=== PATIENT | male | born 1945 | race Caucasian/White ===

== ENCOUNTER 2018-02-21 14:07 | Emergency (ER) | payer MEDICARE, OTHER ==
[~2018-02-21] VITALS: Ht 172.7 cm; Wt 86.2 kg
[2018-02-21] MEDS ORDERED: LIDOCAINE HCL 2% TOP JELLY 5ML TOP ONE (18:00)
[2018-02-21] MEDS ORDERED: LIDOCAINE 2% JELLY 11ml (GLYDO) UR ONE (18:30)
[2018-02-21 19:33] VITALS: BP 154/98
== END 2018-02-21 18:57 | disposition home or self-care (01) ==
LOC: ER 14:09
DX: R33.9 Retention of urine, unspecified (principal); E78.5 Hyperlipidemia, unspecified; I10 Essential (primary) hypertension
CPT/HCPCS: 51702; 81002

== ENCOUNTER 2020-10-30 06:59 | Inpatient (IN) | payer MEDICARE, OTHER ==
[~2020-10-30] VITALS: Ht 167.6 cm; Wt 90.0 kg
[2020-10-30 07:40] LABS: Basophils # (auto) 0 10 ^3/uL (0-0.2); Basophils % (auto) 0.4 % (0.0-2.0); Eosinophils # (auto) 0.2 10 ^3/uL (0-0.8); Eosinophils % (auto) 1.5 % (0.0-7.0); Hematocrit 46.1 % (41.0-53.0); Hemoglobin 15.6 g/dL (13.5-17.5); Lymphocytes # (auto) 0.9 10 ^3/uL (0.4-5.4); Lymphocytes % (auto) 7.9 % (10.0-50.0); Mean Corpuscular Hemoglobin 32.4 pg (28.0-32.0); Mean Corpuscular Hgb Conc. 33.9 g/dL (32.0-36.0); Mean Corpuscular Volume 95.7 fL (80.0-100.0); Monocytes # (auto) 0.9 10 ^3/uL (0-1.3); Monocytes % (auto) 8.2 % (0.0-12.0); Neutrophils # (auto) 9.4 10 ^3/uL (1.6-8.6); Platelet Count (auto) 164 10^3/uL (140-450); Red Blood Cells 4.82 10^6/uL (4.5-5.90); Red Cell Distribution Width 12.7 % (11.8-14.3); White Blood Cell 11.5 10^3/uL (4.4-10.8)
[2020-10-30] MEDS ORDERED: MORPHINE SULF INJ 2 MG/ML SYRINGE 1ML ONE (07:45)
[2020-10-30] MEDS ORDERED: ONDANSETRON HCL 4 MG/2 ML VIAL ONE (07:45)
[2020-10-30 07:46] LABS: Albumin 3.9 g/dL (3.4-5.0); Anion Gap 7 (5-15); Blood Urea Nitrogen 24 mg/dL (7-18); Calcium 9.2 mg/dL (8.5-10.1); Carbon Dioxide 27 mmol/L (21-32); Chloride 105 mmol/L (98-107); Glucose 119 mg/dL (74-106); Potassium 4.1 mmol/L (3.5-5.1); Sodium 139 mmol/L (136-145)
[2020-10-30 07:51] LABS: Alanine Aminotransferase 22 U/L (16-61); Alkaline Phosphatase 65 U/L (45-117); Aspartate Aminotransferase 16 U/L (15-37); BUN/Creatinine Ratio 19.4; Bilirubin, Total 0.8 mg/dL (0.2-1.0); GFR African American 73 mL/min; GFR Non-African American 61 mL/min; Total Protein 7.4 g/dL (6.4-8.2)
[2020-10-30] MEDS ORDERED: ONDANSETRON HCL 4 MG/2 ML VIAL IV ONE (08:00)
[2020-10-30] MEDS ORDERED: MORPHINE SULF INJ 2 MG/ML SYRINGE 1ML IV ONE (08:00)
[2020-10-30] MEDS ORDERED: OMEP20TA PO (09:03)
[2020-10-30] MEDS ORDERED: MECL25TA18 PO (09:03)
[2020-10-30] MEDS ORDERED: CHOL20007 PO (09:03)
[2020-10-30] MEDS ORDERED: TAMS0.4C36 PO (09:03)
[2020-10-30] MEDS ORDERED: HYDR-4072 PO (09:03)
[2020-10-30] MEDS ORDERED: FOLI1TAB6 PO (09:03)
[2020-10-30] MEDS ORDERED: NIAC500T71 PO (09:03)
[2020-10-30] MEDS ORDERED: CYCL10TA6 PO (09:03)
[2020-10-30] MEDS ORDERED: ALBU108A14 IN (09:03)
[2020-10-30] MEDS ORDERED: FLUT250M2 INH (09:03)
[2020-10-30] MEDS ORDERED: DILT60TA PO (09:03)
[2020-10-30] MEDS ORDERED: PRA1C PO (09:03)
[2020-10-30] MEDS ORDERED: GABA300C10 PO (09:03)
[2020-10-30] MEDS ORDERED: BUSP5TAB51 PO (09:03)
[2020-10-30] MEDS ORDERED: LATA0.0019 OP (09:03)
[2020-10-30] MEDS ORDERED: ASPI-543 PO (09:03)
[2020-10-30] MEDS ORDERED: CYAN250L PO (09:03)
[2020-10-30] MEDS ORDERED: cloNIDine HCL 0.1 MG TAB ONE (09:06)
[2020-10-30] MEDS ORDERED: cloNIDine HCL 0.1 MG TAB PO ONE (09:15)
[2020-10-30] MEDS ORDERED: HYDROmorphone HCL 2 MG/ML VL IV ONE (10:15)
[2020-10-30] MEDS ORDERED: PROMETHAZINE HCL 25 MG/ML 1ML IV ONE (10:15)
[2020-10-30] MEDS ORDERED: LABETALOL HCL 5 MG/ML 4ML SYRINGE IV ONE (12:30)
[2020-10-30] MEDS ORDERED: TAMSULOSIN HYDROCHLORIDE 0.4 MG CAP PO ONE (13:30)
[2020-10-30] MEDS ORDERED: ALUM & MAG HYDROX-SIMETH LIQ(MAALOX) 30 ML PO PRN (13:30)
[2020-10-30] MEDS ORDERED: NITROGLYCERIN 0.4 MG SL TAB SL PRN (13:30)
[2020-10-30] MEDS ORDERED: hydrALAZINE HCL 20 MG/ML VL IV ONE (13:30)
[2020-10-30] MEDS ORDERED: ONDANSETRON HCL 4 MG/2 ML VIAL IV PRN (13:30)
[2020-10-30] MEDS ORDERED: HYDROcodone-ACET 5/325MG TAB PO PRN (13:30)
[2020-10-30] MEDS ORDERED: ACETAMINOPHEN 325 MG TAB PO PRN (13:30)
[2020-10-30] MEDS ORDERED: MORPHINE SULF INJ 2 MG/ML SYRINGE 1ML IV PRN (13:30)
[2020-10-30] MEDS: MANNITOL FTV 25% 12.5 GM/50 ML 50 ML IV ONE ×2 (13:45→14:19)
[2020-10-30] MEDS: SODIUM CHLORIDE 0.9% 1,000 ML IV SCH (13:48)
[2020-10-30 13:51] LABS: Urine WBC None Seen /hpf (0 - 3)
[2020-10-30] MEDS: cefTRIAXone 1GM/50ML D5W 50 ML IV SCH (14:00)
[2020-10-30 14:06] LABS: Urine Bacteria NONE SEEN /hpf (None Seen); Urine Blood 1+ /uL (Negative); Urine Specific Gravity 1.021 (1.001-1.035)
[2020-10-30] MEDS: HYDROmorphone HCL 2 MG/ML VL IV PRN ×2 (15:45→21:20)
[2020-10-30 17:00] VITALS: BP 159/84
[2020-10-30] MEDS: TEMAZEPAM 15 MG CAP PO PRN (21:20)
[2020-10-30 22:00] VITALS: BP 101/71
[2020-10-31] MEDS: HYDROmorphone HCL 2 MG/ML VL IV PRN ×5 (03:13→22:22)
[2020-10-31 05:14] VITALS: BP 146/84
[2020-10-31] MEDS: SODIUM CHLORIDE 0.9% 1,000 ML IV SCH ×4 (05:39→22:21)
[2020-10-31 09:00] VITALS: BP 147/86
[2020-10-31] MEDS: TAMSULOSIN HYDROCHLORIDE 0.4 MG CAP PO SCH (09:56)
[2020-10-31] MEDS: cefTRIAXone 1GM/50ML D5W 50 ML IV SCH (09:56)
[2020-10-31] MEDS: traMADol HCL 50 MG TAB PO PRN ×2 (12:18→21:11)
[2020-10-31 13:00] VITALS: BP 147/82
[2020-10-31 17:00] VITALS: BP 150/81
[2020-10-31] MEDS: [UNRECOGNIZED DRUG - OTHER] OP SCH (18:09)
[2020-10-31 20:00] VITALS: BP 142/94
[2020-10-31] MEDS: LATANOPROST 0.005 % OPTH(EYE) SOL 2.5ML EACHEYE SCH (21:11)
[2020-11-01 04:59] VITALS: BP 156/92
[2020-11-01] MEDS: SODIUM CHLORIDE 0.9% 1,000 ML IV SCH ×3 (05:43→21:02)
[2020-11-01 09:00] VITALS: BP 161/84
[2020-11-01] MEDS: cefTRIAXone 1GM/50ML D5W 50 ML IV SCH (09:42)
[2020-11-01] MEDS: dilTIAZem 120MG ER CAP PO SCH (09:43)
[2020-11-01] MEDS: TAMSULOSIN HYDROCHLORIDE 0.4 MG CAP PO SCH (09:43)
[2020-11-01] MEDS: PRAZOSIN HCL 1 MG CAP PO SCH (09:44)
[2020-11-01] MEDS ORDERED: REFRESH OPTIVE OP SCH (10:00)
[2020-11-01] MEDS: [UNRECOGNIZED DRUG - OTHER] OP SCH (10:00)
[2020-11-01 10:16] LABS: Basophils # (auto) 0 10 ^3/uL (0-0.2); Basophils % (auto) 0.3 % (0.0-2.0); Eosinophils # (auto) 0.1 10 ^3/uL (0-0.8); Eosinophils % (auto) 0.9 % (0.0-7.0); Hematocrit 42.4 % (41.0-53.0); Hemoglobin 14.4 g/dL (13.5-17.5); Lymphocytes # (auto) 0.7 10 ^3/uL (0.4-5.4); Lymphocytes % (auto) 7.3 % (10.0-50.0); Mean Corpuscular Hemoglobin 32.6 pg (28.0-32.0); Mean Corpuscular Volume 95.8 fL (80.0-100.0); Monocytes # (auto) 1.2 10 ^3/uL (0-1.3); Monocytes % (auto) 11.5 % (0.0-12.0); Neutrophils # (auto) 8.1 10 ^3/uL (1.6-8.6); Platelet Count (auto) 157 10^3/uL (140-450); Red Blood Cells 4.43 10^6/uL (4.5-5.90); White Blood Cell 10.1 10^3/uL (4.4-10.8)
[2020-11-01 10:19] LABS: Calcium 9.3 mg/dL (8.5-10.1); Potassium 4.1 mmol/L (3.5-5.1)
[2020-11-01 10:21] LABS: BUN/Creatinine Ratio 15.8
[2020-11-01 13:00] VITALS: BP 131/81
[2020-11-01] MEDS ORDERED: LORazepam 2MG/ML-1ML VIAL IV PRN (16:30)
[2020-11-01 17:04] VITALS: BP 135/71
[2020-11-01] MEDS: LATANOPROST 0.005 % OPTH(EYE) SOL 2.5ML EACHEYE SCH (21:02)
[2020-11-01] MEDS: TEMAZEPAM 15 MG CAP PO PRN (21:02)
[2020-11-01 22:00] VITALS: BP 138/67
[2020-11-02] MEDS: SODIUM CHLORIDE 0.9% 1,000 ML IV SCH ×3 (02:21→15:35)
[2020-11-02 05:00] VITALS: BP 153/83
[2020-11-02 09:00] VITALS: BP 153/95
[2020-11-02] MEDS: dilTIAZem 120MG ER CAP PO SCH (09:47)
[2020-11-02] MEDS: TAMSULOSIN HYDROCHLORIDE 0.4 MG CAP PO SCH (09:47)
[2020-11-02] MEDS: [UNRECOGNIZED DRUG - OTHER] OP SCH (09:48)
[2020-11-02] MEDS: cefTRIAXone 1GM/50ML D5W 50 ML IV SCH (09:48)
[2020-11-02] MEDS: PRAZOSIN HCL 1 MG CAP PO SCH (09:48)
[2020-11-02] MEDS ORDERED: IOHEXOL 350 MG/ML 100ML IJ ONE (12:52)
[2020-11-02 13:00] VITALS: BP_SYST 127; BP_SYST 141; BP_DIAS 79; BP_DIAS 88
[2020-11-02 15:09] VITALS: BP 141/88
[2020-11-02 17:00] VITALS: BP 148/98
== END 2020-11-02 19:45 | disposition home or self-care (01) | DRG 689 ==
LOC: ER 06:59 → EAST 13:17
PROVIDERS: ADMIT Internal Medicine; ATTEND Internal Medicine
DX: N13.6 Pyonephrosis (principal); J96.00 Acute respiratory failure, unspecified whether with hypoxia or hypercapnia; N30.00 Acute cystitis without hematuria; J44.9 Chronic obstructive pulmonary disease, unspecified; K80.20 Calculus of gallbladder without cholecystitis without obstruction; N40.0 Benign prostatic hyperplasia without lower urinary tract symptoms; F43.10 Post-traumatic stress disorder, unspecified; Z20.822 Contact with and (suspected) exposure to COVID-19; K37 Unspecified appendicitis; F41.1 Generalized anxiety disorder; F41.9 Anxiety disorder, unspecified; E66.9 Obesity, unspecified; E78.5 Hyperlipidemia, unspecified; I11.9 Hypertensive heart disease without heart failure; Z68.32 Body mass index [BMI] 32.0-32.9, adult; Z79.51 Long term (current) use of inhaled steroids; Z79.899 Other long term (current) drug therapy; Z80.1 Family history of malignant neoplasm of trachea, bronchus and lung; Z80.42 Family history of malignant neoplasm of prostate; Z80.8 Family history of malignant neoplasm of other organs or systems; Z81.8 Family history of other mental and behavioral disorders; Z82.0 Family history of epilepsy and other diseases of the nervous system; Z82.5 Family history of asthma and other chronic lower respiratory diseases; Z85.038 Personal history of other malignant neoplasm of large intestine; Z85.118 Personal history of other malignant neoplasm of bronchus and lung; Z85.3 Personal history of malignant neoplasm of breast; Z87.891 Personal history of nicotine dependence
CPT/HCPCS: 36415; 36600; 71045; 71275; 74176; 80048; 80053; 81001; 82805; 83880; 84154; 84484; 85025; 87426; 93005; 96365; 96375; G0378; J0696; J2405

== ENCOUNTER → 2021-02-03 | Outpatient (CLI) | payer MEDICARE, OTHER ==
[~2021-02-03] MED LIST: ALBU108A14 IN; ASPI-543 PO; BUSP5TAB51 PO; CHOL20007 PO; CYAN250L PO; CYCL10TA6 PO; DILT60TA PO; FLUT250M2 INH; FOLI1TAB6 PO; GABA300C10 PO; HYDR-4072 PO; LATA0.0019 OP; MECL25TA18 PO; NIAC500T71 PO; OMEP20TA PO; PRA1C PO; TAMS0.4C36 PO
== END | disposition home or self-care (01) ==
LOC: LAB 07:54
PROVIDERS: ATTEND Internal Medicine
DX: E03.9 Hypothyroidism, unspecified (principal); R35.1 Nocturia; Z79.899 Other long term (current) drug therapy
CPT/HCPCS: 36415; 83036; 84439; 84443

== ENCOUNTER → 2021-04-29 | Outpatient (CLI) | payer MEDICARE, OTHER ==
[2021-04-29 12:50] LABS: Hepatitis B Surface Antibody Positive
[2021-04-29 13:19] LABS: Cholesterol 155 mg/dL (< 200); HDL Cholesterol 42 mg/dL (40-59); LDL Cholesterol 91 mg/dL (< 100); Triglycerides 181 mg/dL (< 150)
[2021-04-29 13:51] LABS: Hepatitis A Ab IgM Negative
[2021-04-29 13:52] LABS: Hepatitis B Surface Antigen Negative (Negative); Hepatitis C Antibody Negative (Negative)
[2021-04-29 13:55] LABS: Hepatitis B Core IgM Negative
[2021-04-29 13:59] LABS: Hepatitis B Core Total AB Positive
[2021-04-30 08:06] LABS: Immunoglobulin G, Serum 990 mg/dL (603-1613)
== END | disposition home or self-care (01) ==
LOC: LAB 11:29
PROVIDERS: ATTEND Internal Medicine
DX: G62.9 Polyneuropathy, unspecified (principal); N40.0 Benign prostatic hyperplasia without lower urinary tract symptoms; R89.9 Unspecified abnormal finding in specimens from other organs, systems and tissues; Z79.899 Other long term (current) drug therapy
CPT/HCPCS: 36415; 80061; 82607; 82784; 84207; 86334; 86704; 86705; 86706; 86709; 86803; 87340

== ENCOUNTER → 2021-12-09 | Outpatient (CLI) | payer MEDICARE, OTHER ==
[~2021-12-09] MED LIST changes: +CYCL-839 PO; -CYCL10TA6 PO
[2021-12-09 11:52] LABS: Urine Bacteria NONE SEEN /hpf (None Seen); Urine Blood Negative /uL (Negative); Urine Hyaline Cast FEW /lpf (0 - 2); Urine Mucus FEW (None Seen); Urine Specific Gravity 1.035 (1.001-1.035); Urine WBC 1 /hpf (0 - 3)
[2021-12-09 11:54] LABS: Basophils # (auto) 0.3 10 ^3/uL (0-0.2); Basophils % (auto) 4.6 % (0.0-2.0); Eosinophils # (auto) 0.2 10 ^3/uL (0-0.8); Eosinophils % (auto) 2.9 % (0.0-7.0); Hematocrit 45.1 % (41.0-53.0); Lymphocytes # (auto) 0.9 10 ^3/uL (0.4-5.4); Lymphocytes % (auto) 15.9 % (10.0-50.0); Mean Corpuscular Hgb Conc. 33.2 g/dL (32.0-36.0); Mean Corpuscular Volume 96.4 fL (80.0-100.0); Monocytes # (auto) 0.5 10 ^3/uL (0-1.3); Monocytes % (auto) 8.2 % (0.0-12.0); Neutrophils # (auto) 4.1 10 ^3/uL (1.6-8.6); Neutrophils % (auto) 68.4 % (37.0-80.0); Nucleated Red Blood Cells % 0.1 %; Red Blood Cells 4.68 10^6/uL (4.5-5.90); Red Cell Distribution Width 13.1 % (11.8-14.3)
[2021-12-09 12:46] LABS: Albumin 3.7 g/dL (3.4-5.0); Potassium 4.5 mmol/L (3.5-5.1)
[2021-12-09 12:49] LABS: Bilirubin, Total 0.3 mg/dL (0.2-1.0); Total Protein 7.1 g/dL (6.4-8.2)
== END | disposition home or self-care (01) ==
LOC: LAB 11:29
PROVIDERS: ATTEND Internal Medicine
DX: K21.9 Gastro-esophageal reflux disease without esophagitis (principal); E03.9 Hypothyroidism, unspecified; I10 Essential (primary) hypertension
CPT/HCPCS: 36415; 80053; 81001; 84439; 84443; 85025

== ENCOUNTER → 2022-04-12 | Outpatient (CLI) | payer MEDICARE, OTHER ==
[2022-04-12 12:54] LABS: Urine Bacteria NONE SEEN /hpf (None Seen); Urine Blood Negative /uL (Negative); Urine Mucus FEW (None Seen); Urine Specific Gravity 1.027 (1.001-1.035); Urine WBC 2 /hpf (0 - 3)
[2022-04-12 12:59] LABS: Basophils # (auto) 0 10 ^3/uL (0-0.2); Basophils % (auto) 0.9 % (0.0-2.0); Eosinophils # (auto) 0.1 10 ^3/uL (0-0.8); Eosinophils % (auto) 2.7 % (0.0-7.0); Hematocrit 42.7 % (41.0-53.0); Hemoglobin 14.2 g/dL (13.5-17.5); Lymphocytes # (auto) 1.1 10 ^3/uL (0.4-5.4); Lymphocytes % (auto) 21.2 % (10.0-50.0); Mean Corpuscular Hemoglobin 31.5 pg (28.0-32.0); Mean Corpuscular Hgb Conc. 33.3 g/dL (32.0-36.0); Mean Corpuscular Volume 94.6 fL (80.0-100.0); Monocytes # (auto) 0.5 10 ^3/uL (0-1.3); Monocytes % (auto) 9.6 % (0.0-12.0); Neutrophils # (auto) 3.3 10 ^3/uL (1.6-8.6); Neutrophils % (auto) 65.6 % (37.0-80.0); Nucleated Red Blood Cells % 0.1 %; Red Blood Cells 4.52 10^6/uL (4.5-5.90); Red Cell Distribution Width 13.1 % (11.8-14.3)
[2022-04-12 13:19] LABS: Potassium 4.1 mmol/L (3.5-5.1)
[2022-04-12 13:26] LABS: Albumin 4.1 g/dL (3.4-5.0); Bilirubin, Total 0.6 mg/dL (0.2-1.0); Total Protein 6.9 g/dL (6.4-8.2); Uric Acid 3.7 mg/dL (3.5-7.2)
[2022-04-12 13:29] LABS: Free T4 (Free Thyroxine) 1.18 ng/dL (0.89-1.76); Prostate Specific Antigen 2.43 ng/mL (0.0-4.0)
== END | disposition home or self-care (01) ==
LOC: LAB 12:20
PROVIDERS: ATTEND Internal Medicine
DX: I10 Essential (primary) hypertension (principal); N40.0 Benign prostatic hyperplasia without lower urinary tract symptoms; R73.01 Impaired fasting glucose
CPT/HCPCS: 36415; 80053; 80061; 81001; 83036; 84153; 84439; 84443; 84550; 85025; 85652

== ENCOUNTER → 2023-05-16 | Outpatient (CLI) | payer MEDICARE, OTHER ==
[~2023-05-16] MED LIST changes: +FOLI-119 PO; -FOLI1TAB6 PO; +GABA-1250 PO; -GABA300C10 PO; -LATA0.0019 OP; +LATA0.008 OP; +MECL1TAB32 PO; -MECL25TA18 PO
[2023-05-16 12:37] LABS: Prostate Specific Antigen 2.75 ng/mL (0.0-4.0)
[2023-05-16 12:40] LABS: Free T4 (Free Thyroxine) 0.89 ng/dL (0.89-1.76)
[2023-05-16 12:51] LABS: Basophils # (auto) 0.1 10 ^3/uL (0-0.2); Basophils % (auto) 0.9 % (0.0-2.0); Eosinophils # (auto) 0.2 10 ^3/uL (0-0.8); Eosinophils % (auto) 3.6 % (0.0-7.0); Hematocrit 48.2 % (41.0-53.0); Hemoglobin 15.9 g/dL (13.5-17.5); Lymphocytes # (auto) 1.2 10 ^3/uL (0.4-5.4); Lymphocytes % (auto) 20.2 % (10.0-50.0); Mean Corpuscular Hemoglobin 32.1 pg (28.0-32.0); Mean Corpuscular Volume 97.2 fL (80.0-100.0); Monocytes # (auto) 0.6 10 ^3/uL (0-1.3); Monocytes % (auto) 10.2 % (0.0-12.0); Neutrophils # (auto) 3.9 10 ^3/uL (1.6-8.6); Neutrophils % (auto) 65.1 % (37.0-80.0); Nucleated Red Blood Cells % 0.2 %; Red Blood Cells 4.96 10^6/uL (4.5-5.90); Red Cell Distribution Width 13.3 % (11.8-14.3)
[2023-05-16 13:05] LABS: Bilirubin, Total 0.5 mg/dL (0.2-1.0)
[2023-05-16 13:14] LABS: Alanine Aminotransferase 14 U/L (7-40); Albumin 4.4 g/dL (3.2-4.8); Alkaline Phosphatase 38 U/L (46-116); Anion Gap 6 (5-15); Aspartate Aminotransferase 16 U/L (13-40); BUN/Creatinine Ratio 10.7 (10.0-20.0); Blood Urea Nitrogen 14 mg/dL (9-23); Calcium 9.2 mg/dL (8.5-10.1); Carbon Dioxide 29 mmol/L (20-30); Chloride 104 mmol/L (98-107); Cholesterol 145 mg/dL (< 200); Glucose 111 mg/dL (74-106); HDL Cholesterol 42 mg/dL (40-59); LDL Cholesterol 90 mg/dL (< 100); Potassium 4.3 mmol/L (3.5-5.1); Sodium 139 mmol/L (136-145); Total Protein 6.9 g/dL (5.7-8.2); Triglycerides 116 mg/dL (< 150)
[2023-05-16 13:27] LABS: Erythrocyte Sedimentation Rate 1 mm/hr (0-20)
== END | disposition home or self-care (01) ==
LOC: LAB 11:54
PROVIDERS: ATTEND Internal Medicine
DX: E78.5 Hyperlipidemia, unspecified (principal); N40.0 Benign prostatic hyperplasia without lower urinary tract symptoms
CPT/HCPCS: 36415; 80053; 80061; 84153; 84439; 84443; 85025; 85652

== ENCOUNTER → 2023-12-25 | Outpatient (CLI) | payer MEDICARE, OTHER ==
[~2023-12-25] MED LIST changes: +MECL-90 PO; -MECL1TAB32 PO
== END | disposition home or self-care (01) ==
LOC: XYW 12:28
PROVIDERS: ATTEND Student in an Organized Health Care Education/Training Program
DX: I35.8 Other nonrheumatic aortic valve disorders (principal); I51.89 Other ill-defined heart diseases; R06.02 Shortness of breath
CPT/HCPCS: 93306

== ENCOUNTER 2024-03-01 21:43 | Inpatient (IN) | payer MEDICARE, OTHER ==
[~2024-03-01] VITALS: Ht 175.3 cm; Wt 111.5 kg
[2024-03-01 21:43] VITALS: PULSE 111; RESP 27; O2SAT 91
[~2024-03-01 21:43] MED LIST changes: +LATA0.008 EACHEYE; -LATA0.008 OP; -PRA1C PO; +PRAZ1CAP2 PO; -TAMS0.4C36 PO; +TAMS0.4C39 PO
[2024-03-01 22:36] LABS: Basophils % (auto) 0.6 % (0.0-2.0); Eosinophils # (auto) 0.2 10 ^3/uL (0-0.8); Lymphocytes # (auto) 0.7 10 ^3/uL (0.4-5.4); Monocytes # (auto) 0.6 10 ^3/uL (0-1.3); White Blood Cell 8.8 10^3/uL (4.4-10.8)
[2024-03-01 22:38] LABS: Basophils # (auto) 0.1 10 ^3/uL (0-0.2); Eosinophils % (auto) 1.8 % (0.0-7.0); Hematocrit 44.9 % (41.0-53.0); Hemoglobin 14.1 g/dL (13.5-17.5); Lymphocytes % (auto) 7.6 % (10.0-50.0); Mean Corpuscular Hemoglobin 26.5 pg (28.0-32.0); Mean Corpuscular Hgb Conc. 31.4 g/dL (32.0-36.0); Mean Corpuscular Volume 84.2 fL (80.0-100.0); Monocytes % (auto) 6.9 % (0.0-12.0); Neutrophils # (auto) 7.3 10 ^3/uL (1.6-8.6); Neutrophils % (auto) 83.1 % (37.0-80.0); Platelet Count (auto) 235 10^3/uL (140-450); Red Blood Cells 5.33 10^6/uL (4.5-5.90); Red Cell Distribution Width 17.7 % (11.8-14.3)
[2024-03-01 22:47] LABS: Chloride 107 mmol/L (98-107); Potassium 4.3 mmol/L (3.5-5.1); Sodium 143 mmol/L (136-145)
[2024-03-01 22:48] LABS: Anion Gap 7 (5-15); Calcium 9.6 mg/dL (8.7-10.4); Carbon Dioxide 29 mmol/L (20-30)
[2024-03-01 22:53] LABS: BUN/Creatinine Ratio 11.4 (10.0-20.0); Blood Urea Nitrogen 15 mg/dL (9-23); Glucose 176 mg/dL (74-106)
[2024-03-01 22:56] LABS: Base Excess -2.3 mmol/L (-2.0-2.0)
[2024-03-01 22:59] LABS: Lactic Acid w/Reflex 4.3 mmol/L (0.4-2.0)
[2024-03-02] VITALS (9 sets, daily range): BP systolic 125–158; BP diastolic 31–88; PULSE 91–113; RESP 20–23; O2SAT 91–96
[2024-03-02] MEDS: ALBUTEROL SULF 2.5 MG/0.5ML(0.5%) NEB SOLN NEB ONE (01:09)
[2024-03-02] MEDS: methylPREDNISolone SOD SUCC 125 MG/2 ML VL IV ONE (01:11)
[2024-03-02] MEDS ORDERED: ONDANSETRON HCL 4 MG/2 ML VIAL IV PRN (01:15)
[2024-03-02] MEDS ORDERED: ACETAMINOPHEN 325 MG TAB PO PRN (01:15)
[2024-03-02] MEDS ORDERED: DOCUSATE SOD 100 MG CAP PO PRN (01:15)
[2024-03-02] MEDS: AZITHROMYCIN 250 MG TAB PO ONE (01:16)
[2024-03-02] MEDS: SODIUM CHLORIDE 0.9% 1,000 ML IV SCH (01:24)
[2024-03-02 01:40] LABS: Amphetamine Screen, Urine Neg (NEGATIVE); Barbiturate Scree,Urine Neg (NEGATIVE); Benzodiazephine Screen, Urine Pos (NEGATIVE); Cocaine Screen, Urine Neg (NEGATIVE)
[2024-03-02 01:41] LABS: Cannabinoid Screen, Urine Neg (NEGATIVE); Opiate Scree,Urine Pos (NEGATIVE); Phencyclidine Screen, Urine Neg (NEGATIVE)
[2024-03-02] MEDS: LORazepam 2MG/ML-1ML VIAL IV ONE ×2 (02:15→05:11)
[2024-03-02] MEDS: LORazepam 2MG/ML-1ML VIAL ONE (05:06)
[2024-03-02] MEDS: methylPREDNISolone SOD SUCC 40 MG/ML VL IV SCH (05:34)
[2024-03-02] MEDS ORDERED: NITROGLYCERIN 0.4 MG SL TAB SL PRN (06:00)
[2024-03-02 07:28] LABS: Base Excess 1.3 mmol/L (-2.0-2.0)
[2024-03-02] MEDS: ASPirin 81 mg TAB PO SCH (10:00)
[2024-03-02] MEDS: FAMOTIDINE (10MG/ML) 2ML VL IV SCH (10:24)
[2024-03-02] MEDS: HYDROcodone-ACET 5/325MG TAB PO PRN (11:00)
[2024-03-02 11:27] LABS: Mean Corpuscular Volume 83.6 fL (80.0-100.0); Red Cell Distribution Width 17.7 % (11.8-14.3)
[2024-03-02 11:30] LABS: Hemoglobin 15.2 g/dL (13.5-17.5); Mean Corpuscular Hgb Conc. 32.3 g/dL (32.0-36.0); Platelet Count (auto) 233 10^3/uL (140-450); Red Blood Cells 5.62 10^6/uL (4.5-5.90); White Blood Cell 8.8 10^3/uL (4.4-10.8)
[2024-03-02] MEDS: HEPARIN SODIUM (PORCINE) 5000 UNITS/ML 1ML VIAL IV ONE ×2 (11:32→18:49)
[2024-03-02] MEDS: HEPARIN DRIP/D5W 100UNITS/ML 250 ML IV SCH ×2 (11:33→18:49)
[2024-03-02 11:36] LABS: Basophils % (manual) 0 (0.0-2.0); Blast Cells 0; Eosinophils % (manual) 0 (0-7); Metamyelocytes % 0; Myelocytes % 0; Promyelocytes % 0; Reactive Lymphocytes 0
[2024-03-02 11:44] LABS: INR 1.03 (0.9-1.15); Prothrombin Time 10.9 sec (9.3-11.8)
[2024-03-02 12:22] LABS: Anisocytosis Slight; Band Neutrophils % (manual) 1; Lymphocytes % (manual) 6 (10.0-50.0); Monocytes % (manual) 1 (0-12); Platelet Estimate Adequate
[2024-03-02 12:23] LABS: Hypochromia Slight
[2024-03-02] MEDS: cefTRIAXone 1GM/50ML D5W 50 ML IV SCH (13:00)
[2024-03-02] MEDS: DOXYCYCLINE 100MG/250ML 250 ML IV SCH (13:42)
[2024-03-02] MEDS: CLOPIDOGREL BISULFATE 75 MG TAB PO ONE (17:08)
[2024-03-02 18:09] LABS: INR 1.07 (0.9-1.15); Prothrombin Time 11.3 sec (9.3-11.8)
[2024-03-02 18:12] LABS: Triglycerides 126 mg/dL (< 150)
[2024-03-02 18:13] LABS: LDL Cholesterol 93 mg/dL (< 100)
[2024-03-02 18:14] LABS: Cholesterol 150 mg/dL (< 200); HDL Cholesterol 44 mg/dL (40-59)
[2024-03-02] MEDS: HALOPERIDOL LACTATE 5 MG/ML INJ VIAL IM ONE (21:10)
[2024-03-02] MEDS: LATANOPROST 0.005 % OPTH(EYE) SOL 2.5ML EACHEYE SCH (22:00)
[2024-03-02] MEDS: ATORVASTATIN 20 MG TAB PO SCH (22:14)
[2024-03-02] MEDS: hydrOXYzine 25 MG TAB or CAP PO PRN (22:15)
[2024-03-03] VITALS (18 sets, daily range): BP systolic 120–187; BP diastolic 74–150; PULSE 101–138; RESP 15–32; TEMP 97.9–98.9; O2SAT 90–97
[2024-03-03 01:33] LABS: Urine Bacteria None Seen /hpf (None Seen)
[2024-03-03 01:55] LABS: Urine Blood Negative /uL (Negative); Urine Clarity Clear (Clear); Urine Color Light-Yellow (Yellow); Urine Protein, UAD TRACE (Negative); Urine Specific Gravity 1.021 (1.001-1.035); Urine Urobilinogen Normal (Negative); Urine WBC <1 /hpf (0 - 3); Urine pH 5.5 (5.0-9.0)
[2024-03-03 01:57] LABS: INR 1.06 (0.9-1.15); Partial Thromboplastin Time 43.2 SEC (24.5-34.5); Prothrombin Time 11.2 sec (9.3-11.8)
[2024-03-03] MEDS: HEPARIN DRIP/D5W 100UNITS/ML 250 ML IV SCH ×2 (02:00→23:28)
[2024-03-03 05:13] LABS: Eosinophils # (auto) 0 10 ^3/uL (0-0.8); Hemoglobin 15.1 g/dL (13.5-17.5); Lymphocytes # (auto) 0.8 10 ^3/uL (0.4-5.4); Mean Corpuscular Volume 82.8 fL (80.0-100.0); Nucleated Red Blood Cells % 0.1 %
[2024-03-03 05:16] LABS: Basophils # (auto) 0.1 10 ^3/uL (0-0.2); Basophils % (auto) 0.8 % (0.0-2.0); Hematocrit 47.9 % (41.0-53.0); Lymphocytes % (auto) 4.9 % (10.0-50.0); Mean Corpuscular Hemoglobin 26.1 pg (28.0-32.0); Mean Corpuscular Hgb Conc. 31.6 g/dL (32.0-36.0); Monocytes # (auto) 1.6 10 ^3/uL (0-1.3); Monocytes % (auto) 9.5 % (0.0-12.0); Neutrophils # (auto) 14.3 10 ^3/uL (1.6-8.6); Neutrophils % (auto) 84.8 % (37.0-80.0); Platelet Count (auto) 269 10^3/uL (140-450); Red Blood Cells 5.78 10^6/uL (4.5-5.90); Red Cell Distribution Width 17.1 % (11.8-14.3); White Blood Cell 16.9 10^3/uL (4.4-10.8)
[2024-03-03 05:22] LABS: Alanine Aminotransferase 25 U/L (7-40); Albumin 4.3 g/dL (3.2-4.8); Alkaline Phosphatase 47 U/L (46-116); Anion Gap 7 (5-15); Aspartate Aminotransferase 58 U/L (13-40); BUN/Creatinine Ratio 13.9 (10.0-20.0); Bilirubin, Total 0.7 mg/dL (0.2-1.0); Blood Urea Nitrogen 14 mg/dL (9-23); Calcium 9.5 mg/dL (8.7-10.4); Carbon Dioxide 28 mmol/L (20-30); Chloride 104 mmol/L (98-107); Glucose 133 mg/dL (74-106); Potassium 3.9 mmol/L (3.5-5.1); Sodium 139 mmol/L (136-145); Total Protein 7.3 g/dL (5.7-8.2)
[2024-03-03 08:04] LABS: INR 1.07 (0.9-1.15); Partial Thromboplastin Time 49.1 SEC (24.5-34.5); Prothrombin Time 11.3 sec (9.3-11.8)
[2024-03-03] MEDS: hydrALAZINE HCL 20 MG/ML VL IV PRN (12:22)
[2024-03-03 14:45] LABS: INR 1.04 (0.9-1.15); Partial Thromboplastin Time 55.3 SEC (24.5-34.5)
[2024-03-03] MEDS: LORazepam 2MG/ML-1ML VIAL ONE (15:36)
[2024-03-03] MEDS: LORazepam 2MG/ML-1ML VIAL IV PRN (15:37)
[2024-03-03] MEDS: ALBUTEROL SULF 2.5 MG/0.5ML(0.5%) NEB SOLN NEB PRN (15:43)
[2024-03-03] MEDS: IPRATROPIUM BROM 0.5 MG/2.5ML INH SOL NEB PRN (15:43)
[2024-03-03 20:49] LABS: INR 1.06 (0.9-1.15); Partial Thromboplastin Time 41.9 SEC (24.5-34.5); Prothrombin Time 11.2 sec (9.3-11.8)
[2024-03-03] MEDS: TAMSULOSIN HYDROCHLORIDE 0.4 MG CAP PO SCH (21:44)
[2024-03-03] MEDS: predniSONE 20 MG TAB PO SCH (21:44)
[2024-03-04] VITALS (59 sets, daily range): BP systolic 80–179; BP diastolic 23–109; PULSE 77–128; RESP 18–44; TEMP 97.8–98.9; O2SAT 85–98
[2024-03-04] MEDS: MORPHINE SULFATE INJ 2 MG/ml SYRG IV PRN (00:55)
[2024-03-04 05:19] LABS: Basophils # (auto) 0 10 ^3/uL (0-0.2); Eosinophils # (auto) 0 10 ^3/uL (0-0.8); Lymphocytes # (auto) 0.7 10 ^3/uL (0.4-5.4)
[2024-03-04 05:23] LABS: Basophils % (auto) 0.1 % (0.0-2.0); Hematocrit 48.5 % (41.0-53.0); Hemoglobin 15.4 g/dL (13.5-17.5); Mean Corpuscular Hemoglobin 26.5 pg (28.0-32.0); Mean Corpuscular Hgb Conc. 31.6 g/dL (32.0-36.0); Mean Corpuscular Volume 83.6 fL (80.0-100.0); Monocytes # (auto) 1.6 10 ^3/uL (0-1.3); Monocytes % (auto) 9.4 % (0.0-12.0); Neutrophils # (auto) 14.2 10 ^3/uL (1.6-8.6); Neutrophils % (auto) 86.5 % (37.0-80.0); Platelet Count (auto) 274 10^3/uL (140-450); Red Blood Cells 5.81 10^6/uL (4.5-5.90); Red Cell Distribution Width 17.8 % (11.8-14.3); White Blood Cell 16.5 10^3/uL (4.4-10.8)
[2024-03-04 05:35] LABS: Alanine Aminotransferase 39 U/L (7-40); Albumin 4.3 g/dL (3.2-4.8); Alkaline Phosphatase 47 U/L (46-116); Anion Gap 11 (5-15); Aspartate Aminotransferase 109 U/L (13-40); BUN/Creatinine Ratio 15.7 (10.0-20.0); Bilirubin, Total 0.8 mg/dL (0.2-1.0); Blood Urea Nitrogen 17 mg/dL (9-23); Calcium 9.4 mg/dL (8.7-10.4); Carbon Dioxide 27 mmol/L (20-30); Chloride 104 mmol/L (98-107); Glucose 130 mg/dL (74-106); Potassium 3.9 mmol/L (3.5-5.1); Sodium 142 mmol/L (136-145); Total Protein 7.1 g/dL (5.7-8.2)
[2024-03-04 05:42] LABS: INR 1.07 (0.9-1.15); Prothrombin Time 11.3 sec (9.3-11.8)
[2024-03-04] MEDS ORDERED: HEPARIN DRIP/D5W 100UNITS/ML 250 ML IV SCH (06:15)
[2024-03-04] MEDS: ALBUTEROL SULF 2.5 MG/0.5ML(0.5%) NEB SOLN NEB SCH (06:45)
[2024-03-04] MEDS: LORazepam 2MG/ML-1ML VIAL IV PRN (11:21)
[2024-03-04] MEDS: ETOMIDATE (2MG/ML) 20ML VIAL IV ONE ×2 (13:04→13:30)
[2024-03-04] MEDS: ROCURONIUM 10MG/ML 10ML VIAL IV ONE ×2 (13:04→13:30)
[2024-03-04] MEDS: PROPOFOL 100 ML IV ONE (13:10)
[2024-03-04] MEDS: fentaNYL Drip 2500mCg/250mlNS 250 ML IV ONE (13:10)
[2024-03-04] MEDS: MIDAZOLAM DRIP 50 mg/50mL 0 ML IV ONE (13:11)
[2024-03-04] MEDS: PROPOFOL 100 ML IV SCH (14:00)
[2024-03-04] MEDS: ALPRAZolam 0.5 MG TAB PO SCH (14:00)
[2024-03-04] MEDS: fentaNYL Drip 2500mCg/250mlNS 250 ML IV SCH (14:00)
[2024-03-04] MEDS: NOREPINEPHRINE 8 MG/250ML KIT 250 ML IV SCH (15:29)
[2024-03-04] MEDS: methylPREDNISolone SOD SUCC 40 MG/ML VL IV SCH (15:32)
[2024-03-04] MEDS ORDERED: DILT-93 PO (17:55)
[2024-03-04] MEDS ORDERED: FLUT1AER3 INH (17:56)
[2024-03-04] MEDS ORDERED: LEVO25TA6 PO (17:56)
[2024-03-04] MEDS ORDERED: ATOR10TA PO (17:56)
[2024-03-04 18:53] LABS: Base Excess 0.4 mmol/L (-2.0-2.0)
[2024-03-04 20:13] LABS: Basophils # (auto) 0 10 ^3/uL (0-0.2); Eosinophils # (auto) 0 10 ^3/uL (0-0.8); Hemoglobin 13.5 g/dL (13.5-17.5); Lymphocytes # (auto) 0.4 10 ^3/uL (0.4-5.4); Neutrophils # (auto) 12.4 10 ^3/uL (1.6-8.6); White Blood Cell 13.9 10^3/uL (4.4-10.8)
[2024-03-04 20:15] LABS: Basophils % (auto) 0.1 % (0.0-2.0); Mean Corpuscular Hemoglobin 26.2 pg (28.0-32.0); Mean Corpuscular Hgb Conc. 31.4 g/dL (32.0-36.0); Mean Corpuscular Volume 83.6 fL (80.0-100.0); Monocytes # (auto) 1.1 10 ^3/uL (0-1.3); Neutrophils % (auto) 88.9 % (37.0-80.0); Platelet Count (auto) 245 10^3/uL (140-450); Red Blood Cells 5.15 10^6/uL (4.5-5.90); Red Cell Distribution Width 17.8 % (11.8-14.3)
[2024-03-04 20:40] LABS: Alanine Aminotransferase 39 U/L (7-40); Albumin 3.5 g/dL (3.2-4.8); Alkaline Phosphatase 41 U/L (46-116); Anion Gap 10 (5-15); Aspartate Aminotransferase 115 U/L (13-40); BUN/Creatinine Ratio 25.7 (10.0-20.0); Calcium 8.4 mg/dL (8.7-10.4); Carbon Dioxide 26 mmol/L (20-30); Chloride 108 mmol/L (98-107); Glucose 130 mg/dL (74-106); Potassium 4.5 mmol/L (3.5-5.1); Sodium 144 mmol/L (136-145)
[2024-03-04 20:41] LABS: Bilirubin, Total 0.6 mg/dL (0.2-1.0); Phosphorus 4.3 mg/dL (2.4-5.1); Total Protein 5.5 g/dL (5.7-8.2)
[2024-03-04 21:09] LABS: Blood Urea Nitrogen 28 mg/dL (9-23)
[2024-03-04] MEDS ORDERED: ALBUTEROL SULF 2.5 MG/0.5ML(0.5%) NEB SOLN NEB SCH (22:00)
[2024-03-04] MEDS: BUDESONIDE (INHALATION) 0.5 MG/2 ML NEB NEB SCH (22:23)
[2024-03-05] VITALS (108 sets, daily range): BP systolic 83–177; BP diastolic 41–146; PULSE 75–98; RESP 8–32; TEMP 97.5–98.8; O2SAT 86–97
[2024-03-05 04:19] LABS: Basophils # (auto) 0 10 ^3/uL (0-0.2); Eosinophils # (auto) 0 10 ^3/uL (0-0.8); Hemoglobin 12.4 g/dL (13.5-17.5); Lymphocytes # (auto) 0.2 10 ^3/uL (0.4-5.4); Lymphocytes % (auto) 2.1 % (10.0-50.0); Mean Corpuscular Hemoglobin 26.4 pg (28.0-32.0); Mean Corpuscular Hgb Conc. 31.8 g/dL (32.0-36.0); Mean Corpuscular Volume 83.3 fL (80.0-100.0); Monocytes # (auto) 0.6 10 ^3/uL (0-1.3); Monocytes % (auto) 5.8 % (0.0-12.0); Neutrophils # (auto) 10.3 10 ^3/uL (1.6-8.6); Neutrophils % (auto) 92.1 % (37.0-80.0); Platelet Count (auto) 198 10^3/uL (140-450); Red Blood Cells 4.69 10^6/uL (4.5-5.90); Red Cell Distribution Width 17.6 % (11.8-14.3); White Blood Cell 11.2 10^3/uL (4.4-10.8)
[2024-03-05 04:28] LABS: Anion Gap 8 (5-15); Carbon Dioxide 25 mmol/L (20-30); Chloride 110 mmol/L (98-107); Potassium 3.7 mmol/L (3.5-5.1); Sodium 143 mmol/L (136-145)
[2024-03-05 04:29] LABS: Calcium 7.5 mg/dL (8.7-10.4)
[2024-03-05 04:34] LABS: BUN/Creatinine Ratio 24.7 (10.0-20.0); Blood Urea Nitrogen 23 mg/dL (9-23); Glucose 163 mg/dL (74-106)
[2024-03-05 07:13] LABS: Base Excess -2.5 mmol/L (-2.0-2.0)
[2024-03-05 14:03] LABS: Base Excess 0.6 mmol/L (-2.0-2.0)
[2024-03-05] MEDS ORDERED: CLINIMIX PER PHARMACY 0 ML IV SCH (18:00)
[2024-03-05] MEDS ORDERED: DEXTROSE (50%) 50ML SYRG IV SCH (20:00)
[2024-03-05] MEDS: AMINO ACID INFUSION IN D10W 1,000 ML IV SCH (22:55)
[2024-03-06] VITALS (106 sets, daily range): BP systolic 75–196; BP diastolic 35–111; PULSE 70–111; RESP 5–21; TEMP 96.4–100.6; O2SAT 90–100
[2024-03-06] MEDS: ACCU-CHEK COMFORT CURVE STRIP VI SCH
[2024-03-06] MEDS: InsuLIN REG 1unit/0.01ml Soln (100units/ml) SC SCH
[2024-03-06 04:29] LABS: Alanine Aminotransferase 30 U/L (7-40); Albumin 3.4 g/dL (3.2-4.8); Alkaline Phosphatase 38 U/L (46-116); Anion Gap 7 (5-15); Aspartate Aminotransferase 42 U/L (13-40); BUN/Creatinine Ratio 21.2 (10.0-20.0); Bilirubin, Total 0.4 mg/dL (0.2-1.0); Blood Urea Nitrogen 25 mg/dL (9-23); Calcium 7.1 mg/dL (8.7-10.4); Carbon Dioxide 25 mmol/L (20-30); Chloride 111 mmol/L (98-107); Glucose 157 mg/dL (74-106); Phosphorus 3.8 mg/dL (2.4-5.1); Potassium 3.5 mmol/L (3.5-5.1); Sodium 143 mmol/L (136-145); Total Protein 5.5 g/dL (5.7-8.2); Triglycerides 138 mg/dL (< 150)
[2024-03-06] MEDS: MIDAZOLAM DRIP 50 mg/50mL 50 ML IV SCH (05:55)
[2024-03-06 08:07] LABS: Base Excess -2.7 mmol/L (-2.0-2.0)
[2024-03-07] VITALS (108 sets, daily range): BP systolic 84–161; BP diastolic 41–100; PULSE 74–109; RESP 5–20; TEMP 95.9–99; O2SAT 87–100
[2024-03-07 05:02] LABS: Alanine Aminotransferase 26 U/L (7-40); Alkaline Phosphatase 33 U/L (46-116); Anion Gap 11 (5-15); Aspartate Aminotransferase 24 U/L (13-40); BUN/Creatinine Ratio 30.7 (10.0-20.0); Blood Urea Nitrogen 31 mg/dL (9-23); Calcium 7.7 mg/dL (8.7-10.4); Carbon Dioxide 22 mmol/L (20-30); Chloride 108 mmol/L (98-107); Glucose 190 mg/dL (74-106); Magnesium 2.3 mg/dL (1.6-2.6); Potassium 3.2 mmol/L (3.5-5.1); Sodium 141 mmol/L (136-145)
[2024-03-07 05:03] LABS: Albumin 3.2 g/dL (3.2-4.8); Bilirubin, Total 0.3 mg/dL (0.2-1.0); Phosphorus 3.1 mg/dL (2.4-5.1); Total Protein 5.1 g/dL (5.7-8.2)
[2024-03-07 05:57] LABS: Basophils # (auto) 0 10 ^3/uL (0-0.2); Basophils % (auto) 0.1 % (0.0-2.0); Eosinophils # (auto) 0 10 ^3/uL (0-0.8); Hemoglobin 11.9 g/dL (13.5-17.5); Lymphocytes # (auto) 0.2 10 ^3/uL (0.4-5.4); Monocytes # (auto) 0.7 10 ^3/uL (0-1.3); Neutrophils # (auto) 8.7 10 ^3/uL (1.6-8.6)
[2024-03-07 06:03] LABS: Hematocrit 36.6 % (41.0-53.0); Mean Corpuscular Hgb Conc. 32.6 g/dL (32.0-36.0); Mean Corpuscular Volume 82.7 fL (80.0-100.0); Monocytes % (auto) 7.5 % (0.0-12.0); Neutrophils % (auto) 90.4 % (37.0-80.0); Nucleated Red Blood Cells % 0.1 %; Platelet Count (auto) 179 10^3/uL (140-450); Red Blood Cells 4.42 10^6/uL (4.5-5.90); Red Cell Distribution Width 17.4 % (11.8-14.3); White Blood Cell 9.6 10^3/uL (4.4-10.8)
[2024-03-07] MEDS: POTASSIUM CHL 20MEQ/100ML 100 ML IV ONE ×2 (06:26→06:27)
[2024-03-07 07:51] LABS: Base Excess -5.7 mmol/L (-2.0-2.0)
[2024-03-07] MEDS: ROCURONIUM 10MG/ML 10ML VIAL IV ONE (12:45)
[2024-03-07] MEDS: POTASSIUM PHOSPHATE 44 MEQ in D5W 5% 250 ML IV ONE (15:07)
[2024-03-08] VITALS (82 sets, daily range): BP systolic 63–166; BP diastolic 39–101; PULSE 67–113; RESP 14–19; TEMP 97.5–98.8; O2SAT 86–100
[2024-03-08 04:48] LABS: Alanine Aminotransferase 35 U/L (7-40); Albumin 3.2 g/dL (3.2-4.8); Alkaline Phosphatase 39 U/L (46-116); Anion Gap 5 (5-15); Aspartate Aminotransferase 28 U/L (13-40); Bilirubin, Total 0.4 mg/dL (0.2-1.0); Blood Urea Nitrogen 30 mg/dL (9-23); Calcium 7.9 mg/dL (8.7-10.4); Carbon Dioxide 24 mmol/L (20-30); Chloride 113 mmol/L (98-107); Glucose 186 mg/dL (74-106); Magnesium 2.3 mg/dL (1.6-2.6); Phosphorus 3.4 mg/dL (2.4-5.1); Potassium 4.5 mmol/L (3.5-5.1); Sodium 142 mmol/L (136-145); Total Protein 5.1 g/dL (5.7-8.2)
[2024-03-08] MEDS: ROCURONIUM 10MG/ML 10ML VIAL IV PRN (07:35)
[2024-03-08 08:08] LABS: Base Excess -7.7 mmol/L (-2.0-2.0)
[2024-03-08 14:52] LABS: Base Excess -5.1 mmol/L (-2.0-2.0)
[2024-03-09] VITALS (108 sets, daily range): BP systolic 95–161; BP diastolic 40–109; PULSE 63–75; RESP 18; TEMP 97.2–98.4; O2SAT 90–99
[2024-03-09 04:44] LABS: Alanine Aminotransferase 60 U/L (7-40); Albumin 3.1 g/dL (3.2-4.8); Alkaline Phosphatase 44 U/L (46-116); Anion Gap 6 (5-15); Aspartate Aminotransferase 55 U/L (13-40); BUN/Creatinine Ratio 37.2 (10.0-20.0); Blood Urea Nitrogen 32 mg/dL (9-23); Calcium 8.1 mg/dL (8.7-10.4); Carbon Dioxide 21 mmol/L (20-30); Chloride 115 mmol/L (98-107); Glucose 185 mg/dL (74-106); Magnesium 2.5 mg/dL (1.6-2.6); Potassium 4.7 mmol/L (3.5-5.1); Sodium 142 mmol/L (136-145)
[2024-03-09 04:45] LABS: Bilirubin, Total 0.4 mg/dL (0.2-1.0); Phosphorus 3.2 mg/dL (2.4-5.1)
[2024-03-09 07:52] LABS: Base Excess -3.4 mmol/L (-2.0-2.0)
[2024-03-10] VITALS (107 sets, daily range): BP systolic 73–205; BP diastolic 34–182; PULSE 62–82; RESP 18; TEMP 97.5–98.8; O2SAT 87–96
[2024-03-10 04:26] LABS: Alanine Aminotransferase 58 U/L (7-40); Alkaline Phosphatase 40 U/L (46-116); Anion Gap 8 (5-15); Blood Urea Nitrogen 32 mg/dL (9-23); Calcium 7.9 mg/dL (8.7-10.4); Carbon Dioxide 20 mmol/L (20-30); Chloride 115 mmol/L (98-107); Glucose 192 mg/dL (74-106); Magnesium 2.5 mg/dL (1.6-2.6); Potassium 5.1 mmol/L (3.5-5.1); Sodium 143 mmol/L (136-145)
[2024-03-10 04:27] LABS: Albumin 2.9 g/dL (3.2-4.8); Aspartate Aminotransferase 35 U/L (13-40)
[2024-03-10 04:28] LABS: BUN/Creatinine Ratio 40.5 (10.0-20.0); Basophils # (auto) 0 10 ^3/uL (0-0.2); Bilirubin, Total 0.5 mg/dL (0.2-1.0); Eosinophils # (auto) 0 10 ^3/uL (0-0.8); Hemoglobin 12.6 g/dL (13.5-17.5); Lymphocytes # (auto) 0.4 10 ^3/uL (0.4-5.4); Neutrophils # (auto) 9.3 10 ^3/uL (1.6-8.6); Nucleated Red Blood Cells % 0.1 %; Phosphorus 3.5 mg/dL (2.4-5.1); Total Protein 4.8 g/dL (5.7-8.2)
[2024-03-10 04:31] LABS: Hematocrit 39.9 % (41.0-53.0); Lymphocytes % (auto) 3.6 % (10.0-50.0); Mean Corpuscular Hemoglobin 26.1 pg (28.0-32.0); Mean Corpuscular Hgb Conc. 31.5 g/dL (32.0-36.0); Mean Corpuscular Volume 82.8 fL (80.0-100.0); Monocytes # (auto) 0.7 10 ^3/uL (0-1.3); Monocytes % (auto) 6.8 % (0.0-12.0); Neutrophils % (auto) 89.6 % (37.0-80.0); Platelet Count (auto) 177 10^3/uL (140-450); Red Blood Cells 4.82 10^6/uL (4.5-5.90); Red Cell Distribution Width 18.2 % (11.8-14.3); White Blood Cell 10.4 10^3/uL (4.4-10.8)
[2024-03-10 07:31] LABS: Base Excess -4.3 mmol/L (-2.0-2.0)
[2024-03-11] VITALS (101 sets, daily range): BP systolic 78–155; BP diastolic 38–96; PULSE 61–71; RESP 18; TEMP 94.6–98.8; O2SAT 88–95
[2024-03-11 06:32] LABS: Alanine Aminotransferase 65 U/L (7-40); Albumin 2.9 g/dL (3.2-4.8); Alkaline Phosphatase 47 U/L (46-116); Anion Gap 2 (5-15); Aspartate Aminotransferase 42 U/L (13-40); BUN/Creatinine Ratio 41.8 (10.0-20.0); Bilirubin, Total 0.7 mg/dL (0.2-1.0); Blood Urea Nitrogen 33 mg/dL (9-23); Calcium 8.1 mg/dL (8.7-10.4); Carbon Dioxide 24 mmol/L (20-30); Chloride 112 mmol/L (98-107); GFR African American 122 mL/min; GFR Non-African American 101 mL/min; Glucose 180 mg/dL (74-106); Magnesium 2.6 mg/dL (1.6-2.6); Phosphorus 4.5 mg/dL (2.4-5.1); Sodium 138 mmol/L (136-145); Total Protein 4.6 g/dL (5.7-8.2)
[2024-03-11 06:48] LABS: Potassium 5.6 mmol/L (3.5-5.1)
[2024-03-11 07:23] LABS: Base Excess -6.1 mmol/L (-2.0-2.0)
[2024-03-11] MEDS: SODIUM ZIRCONIUM CYCL 10 GM PAK PO ONE (10:30)
[2024-03-11] MEDS: PROPOFOL 100 ML IV SCH (16:30)
[2024-03-12] VITALS (80 sets, daily range): BP systolic 0–171; BP diastolic 27–92; PULSE 0–71; RESP 0–19; TEMP 98.4–99.1; O2SAT 0–92
[2024-03-12 04:31] LABS: Alanine Aminotransferase 85 U/L (7-40); Albumin 2.9 g/dL (3.2-4.8); Alkaline Phosphatase 53 U/L (46-116); Anion Gap 6 (5-15); Aspartate Aminotransferase 50 U/L (13-40); BUN/Creatinine Ratio 49.4 (10.0-20.0); Blood Urea Nitrogen 38 mg/dL (9-23); Calcium 8.2 mg/dL (8.7-10.4); Carbon Dioxide 22 mmol/L (20-30); Chloride 110 mmol/L (98-107); Glucose 194 mg/dL (74-106); Magnesium 2.4 mg/dL (1.6-2.6); Sodium 138 mmol/L (136-145)
[2024-03-12 04:32] LABS: Bilirubin, Total 0.8 mg/dL (0.2-1.0); Total Protein 4.9 g/dL (5.7-8.2)
[2024-03-12 04:40] LABS: Potassium 5.8 mmol/L (3.5-5.1)
[2024-03-12] MEDS: SODIUM ZIRCONIUM CYCL 10 GM PAK PO ONE (05:40)
[2024-03-12 07:14] LABS: Base Excess -3.5 mmol/L (-2.0-2.0)
[2024-03-12] MEDS ORDERED: MORPHINE SULFATE INJ 2 MG/ml SYRG IV PRN (16:45)
[2024-03-12] MEDS ORDERED: GLYCOPYRROLATE 0.2 MG/ML 1ML VIAL IV PRN (17:00)
== END 2024-03-12 22:00 | DRG 207 ==
LOC: ER 21:43 → EDBD 21:43 → EDUNIT# 21:43 → TELE 03-02 05:46 → TELE-EAST 03-03 15:13 → DOU IN ICU 03-03 18:33 → ICU WEST 03-04 18:10
PROVIDERS: ADMIT Nurse Practitioner Family; ATTEND Family Medicine
PROC: 5A09357 Assistance with Respiratory Ventilation, Less than 24 Consecutive Hours, Continuous Positive Airway Pressure (ICD-10-PCS; 2024-03-01)
PROC: 5A1955Z Respiratory Ventilation, Greater than 96 Consecutive Hours (ICD-10-PCS; principal; 2024-03-04)
PROC: 0BH17EZ Insertion of Endotracheal Airway into Trachea, Via Natural or Artificial Opening (ICD-10-PCS; 2024-03-04)
PROC: 0B9C8ZX Drainage of Right Upper Lung Lobe, Via Natural or Artificial Opening Endoscopic, Diagnostic (ICD-10-PCS; 2024-03-04)
PROC: 0B9D8ZX Drainage of Right Middle Lung Lobe, Via Natural or Artificial Opening Endoscopic, Diagnostic (ICD-10-PCS; 2024-03-04)
PROC: 02HV33Z Insertion of Infusion Device into Superior Vena Cava, Percutaneous Approach (ICD-10-PCS; 2024-03-04)
PROC: B548ZZA Ultrasonography of Superior Vena Cava, Guidance (ICD-10-PCS; 2024-03-04)
PROC: 03HY32Z Insertion of Monitoring Device into Upper Artery, Percutaneous Approach (ICD-10-PCS; 2024-03-04)
DX: J96.21 Acute and chronic respiratory failure with hypoxia (principal); G93.41 Metabolic encephalopathy; I21.A1 Myocardial infarction type 2; J18.9 Pneumonia, unspecified organism; J44.1 Chronic obstructive pulmonary disease with (acute) exacerbation; N17.9 Acute kidney failure, unspecified; E87.20 Acidosis, unspecified; J44.0 Chronic obstructive pulmonary disease with (acute) lower respiratory infection; R73.9 Hyperglycemia, unspecified; F41.9 Anxiety disorder, unspecified; E78.5 Hyperlipidemia, unspecified; E87.5 Hyperkalemia; Z66 Do not resuscitate; F43.10 Post-traumatic stress disorder, unspecified; E66.01 Morbid (severe) obesity due to excess calories; N40.0 Benign prostatic hyperplasia without lower urinary tract symptoms; I10 Essential (primary) hypertension; Z80.3 Family history of malignant neoplasm of breast; Z80.0 Family history of malignant neoplasm of digestive organs; Z82.5 Family history of asthma and other chronic lower respiratory diseases; Z82.0 Family history of epilepsy and other diseases of the nervous system; Z82.49 Family history of ischemic heart disease and other diseases of the circulatory system; Z81.8 Family history of other mental and behavioral disorders; Z83.3 Family history of diabetes mellitus; Z82.62 Family history of osteoporosis; Z80.1 Family history of malignant neoplasm of trachea, bronchus and lung; Z82.3 Family history of stroke; Z79.82 Long term (current) use of aspirin; Z79.899 Other long term (current) drug therapy; Z68.35 Body mass index [BMI] 35.0-35.9, adult; Z87.891 Personal history of nicotine dependence; Z85.118 Personal history of other malignant neoplasm of bronchus and lung; Z80.8 Family history of malignant neoplasm of other organs or systems; Z80.42 Family history of malignant neoplasm of prostate
CPT/HCPCS: 31500; 31624; 36415; 36600; 71045; 80048; 80053; 80061; 80069; 80307; 81001; 82805; 82962; 83036; 83605; 83735; 83880; 84100; 84443; 84478; 84484; 85007; 85025; 85027; 85610; 85730; 87040; 87070; 87081; 87086; 87205; 93005; 93306; 93970; 94002; 94003; 94640; 96365; 96375; 99291; G0378; J1815; J2704; J3480; J3490; J7060